=== PATIENT | female | born 1985 | race Caucasian/White ===

== ENCOUNTER 2023-01-25 14:23 | Emergency (ER) | payer SELFPAY ==
[2023-01-25] MEDS ORDERED: Ondansetron 4 MG/2 ML SDV IVPUSH ONE (15:37)
[2023-01-25] MEDS ORDERED: Sodium Chloride 0.9% 1,000 ML IV SCH (15:45)
[2023-01-25] MEDS ORDERED: HYDROmorphone 0.5 MG/0.5 ML Syringe IVPUSH ONE (15:52)
[2023-01-25 16:41] LABS: BASOPHILS ABSOLUTE AUTO 0.05 K/mm3 (0.01-0.08); BASOPHILS PERCENT AUTO 0.4 % (0.1-1.2); EOSINOPHILS ABSOLUTE AUTO 0.02 K/mm3 (0.04-0.36); EOSINOPHILS PERCENT AUTO 0.2 (0.7-5.8); HEMOGLOBIN 14.9 gm/dl (11.2-15.7); IMMATURE GRAN ABSOLUTE AUTO 0.08 K/mm3 (0.00-0.10); IMMATURE GRAN PERCENT AUTO 0.6 % (<=1.0); LYMPHOCYTES ABSOLUTE AUTO 1.27 K/mm3 (1.18-3.74); MEAN CORPUSCULAR HEMOGLOBIN 32.8 pg (25.6-32.2); MEAN CORPUSCULAR HGB CONC 33.1 g/dl (32.2-35.5); MEAN CORPUSCULAR VOLUME 99.1 fl (79.4-94.8); MEAN PLATELET VOLUME 10.3 fl (9.4-12.3); MONOCYTES ABSOLUTE AUTO 0.84 K/mm3 (0.24-0.36); MONOCYTES PERCENT AUTO 6.6 % (4.7-12.5); NEUTROPHILS ABSOLUTE AUTO 10.46 K/mm3 (1.56-6.13); NEUTROPHILS PERCENT AUTO 82.2 % (34.0-71.1); PLATELET COUNT,PLT 338 K/mm3 (182-369); RED BLOOD CELL COUNT 4.54 M/mm3 (3.98-5.22); WHITE BLOOD CELL COUNT,WBC 12.72 K/mm3 (3.98-10.04)
[2023-01-25 16:53] LABS: APPEARANCE,URINE TURBID (Clear); BILIRUBIN,URINE NEGATIVE (Negative); COLOR,URINE RED (Yellow); GLUCOSE,URINE NEGATIVE (Negative); KETONES,URINE TRACE (Negative); LEUKOCYTE ESTERASE,URINE NEGATIVE (Negative); NITRITE,URINE NEGATIVE (Negative); PH,URINE 6.5 (5.0-8.0); PROTEIN,URINE 3+ (Negative); UROBILINOGEN,URINE 0.2 (0.2-1.0)
[2023-01-25 16:55] LABS: OCCULT BLOOD,URINE 3+ (Negative)
[2023-01-25 17:02] LABS: A/G RATIO 1.1 (1-2); ALANINE AMINOTRANSFERASE,ALT 154 U/L (14-59); ALBUMIN 4.2 g/dl (3.4-5.0); ALKALINE PHOSPHATASE 88 U/L (46-116); ANION GAP 15.8 (5-15); ASPARTATE AMNIOTRANSFERASE,AST 150 U/L (15-37); BILIRUBIN TOTAL 0.3 mg/dL (0.2-1.0); BLOOD UREA NITROGEN,BUN 9 mg/dL (7-18); CALCIUM 9.7 mg/dL (8.5-10.1); CARBON DIOXIDE,CO2 26 mEq/L (21-32); CHLORIDE,CL 103 mEq/L (98-107); CREATININE 0.6 mg/dL (0.55-1.02); ESTIMATED GFR 119 mL/min (>60); GLUCOSE RANDOM 88 mg/dL (70-99); POTASSIUM,K 3.8 mEq/L (3.5-5.1); SODIUM,NA 141 mEq/L (136-145)
[2023-01-25 17:10] LABS: BACTERIA,URINE FEW /hpf (FEW); MUCUS,URINE FEW /hpf (FEW); RBC,URINE TOO NUMEROUS TO CNT /hpf (0-5); SQUAMOUS EPITHELIAL CELLS,UR 0-5 /hpf (0-5); WBC,URINE 0-5 /hpf (0-5)
[2023-01-25] MEDS ORDERED: Tamsulosin 0.4 MG Cap.ER PO ONE (17:30)
== END 2023-01-25 17:50 | disposition home or self-care (01) ==
LOC: JD.ED 14:23
DX: N13.2 Hydronephrosis with renal and ureteral calculous obstruction (principal); F17.210 Nicotine dependence, cigarettes, uncomplicated; Z87.440 Personal history of urinary (tract) infections; Z88.5 Allergy status to narcotic agent
CPT/HCPCS: 36415; 74176; 80053; 81001; 81025; 85025; 96361; 96374; 96375; 99284; A9270; J1170; J2405; J7030

== ENCOUNTER 2024-02-05 19:59 | Emergency (ER) | payer OTHER ==
[2024-02-05 20:24] LABS: BASOPHILS ABSOLUTE AUTO 0.2 K/mm3 (0.0-0.2); BASOPHILS PERCENT AUTO 0.9 % (0.0-1.0); EOSINOPHILS ABSOLUTE AUTO 0.1 K/mm3 (0.0-0.4); EOSINOPHILS PERCENT AUTO 0.4 % (0.0-6.0); HEMATOCRIT 39.8 % (37.0-47.0); HEMOGLOBIN 13.6 gm/dl (12.0-16.0); IMMATURE GRAN ABSOLUTE AUTO 0.45 K/mm3 (0.00-0.05); IMMATURE GRAN PERCENT AUTO 2.7 % (0.0-0.4); MEAN CORPUSCULAR HEMOGLOBIN 33.8 pg (28.0-32.0); MEAN CORPUSCULAR HGB CONC 34.2 g/dl (32.0-36.0); MEAN PLATELET VOLUME 10.1 fl (9.4-12.3); MONOCYTES ABSOLUTE AUTO 1.2 K/mm3 (0.0-0.8); MONOCYTES PERCENT AUTO 7.3 % (0.0-8.0); NEUTROPHILS ABSOLUTE AUTO 9.8 K/mm3 (1.8-7.7); NEUTROPHILS PERCENT AUTO 58.7 % (41.0-71.0); PLATELET COUNT,PLT 322 K/mm3 (150-400); RED BLOOD CELL COUNT 4.02 M/mm3 (4.10-5.30); WHITE BLOOD CELL COUNT,WBC 16.75 K/mm3 (3.9-11.3)
[2024-02-05] MEDS ORDERED: Sodium Chloride 0.9% 100 ML IV SCH (20:30)
[2024-02-05 20:42] LABS: INR 0.99; PROTHROMBIN TIME 10.6 SECONDS (9.7-12.0)
[2024-02-05] MEDS: Sodium Chloride 0.9% 1,000 ML ONE (20:53)
[2024-02-05 20:56] LABS: A/G RATIO 1.1 (1-2); ALANINE AMINOTRANSFERASE,ALT 222 U/L (14-59); ALBUMIN 3.7 g/dl (3.4-5.0); ALKALINE PHOSPHATASE 85 U/L (46-116); ANION GAP 18.4 (5-15); BILIRUBIN TOTAL 0.7 mg/dL (0.2-1.0); BLOOD UREA NITROGEN,BUN 7 mg/dL (7-18); CALCIUM 8.9 mg/dL (8.5-10.1); CARBON DIOXIDE,CO2 22 mEq/L (21-32); CHLORIDE,CL 100 mEq/L (98-107); CREATININE 0.7 mg/dL (0.55-1.02); ESTIMATED GFR 114 mL/min (>60); ETHANOL BLOOD MEDICAL 0.17 gm% (0.00); GLUCOSE RANDOM 128 mg/dL (70-99); POTASSIUM,K 3.4 mEq/L (3.5-5.1); PROTEIN TOTAL,TP 7.1 g/dl (6.4-8.2); SODIUM,NA 137 mEq/L (136-145)
[2024-02-05] MEDS: Iopamidol 612 MG/ML 100 ML Bottle IVPUSH ONE (21:34)
[2024-02-05] MEDS: Lidocaine 1% 10 ML MDV INJECT ONE (21:49)
[2024-02-05] MEDS ORDERED: Lidocaine 1% 10 ML MDV ONE (22:06)
[2024-02-05] MEDS: ceFAZolin 1 GM Vial IM ONE (22:23)
[2024-02-05] MEDS: Dexamethasone 4 MG/ML SDV IVPUSH ONE (22:23)
[2024-02-05] MEDS: Diphtheria,Pertussis(Acell),Tetanus Vaccine 0.5 ML Syringe IM ONE (22:23)
[2024-02-05 22:42] LABS: ASPARTATE AMNIOTRANSFERASE,AST 552 U/L (15-37)
[2024-02-05 22:43] LABS: AMPHETAMINES SCREEN, URINE PRESUMPTIVE POSITIVE (CUTOFF=500); BARBITURATE SCREEN,URINE NEGATIVE (CUTOFF=200); BENZODIAZEPINES SCREEN,URINE NEGATIVE (CUTOFF=150); BUPRENORPHINE SCREEN,URINE NEGATIVE (CUTOFF=10); METHADONE SCREEN, URINE NEGATIVE (CUTOFF=200); METHAMPHETAMINES SCREEN, URINE NEGATIVE (CUTOFF=500); OXYCODONE SCREEN,URINE NEGATIVE (CUT0FF=100); THC SCREEN,URINE 20 NG/ML NEGATIVE (CUTOFF=50)
== END 2024-02-06 00:18 ==
LOC: JD.ED 19:59
DX: S06.300A Unspecified focal traumatic brain injury without loss of consciousness, initial encounter (principal); Z88.5 Allergy status to narcotic agent; Z79.899 Other long term (current) drug therapy; V29.508A Other motorcycle passenger injured in collision with unspecified motor vehicles in traffic accident, initial encounter; Z23 Encounter for immunization
CPT/HCPCS: 32551; 36415; 70450; 70486; 71045; 71260; 72125; 72128; 72131; 72170; 74177; 80053; 80306; 80307; 84703; 85025; 85610; 85730; 86850; 86900; 86901; 90471; 90715; 96372; 96374; 99285; C1729; J0690; J1100; J7030; Q9967; 99291; J3490

== ENCOUNTER 2024-09-05 09:34 | Emergency (ER) | payer MEDICAID ==
[2024-09-05] MEDS: methylPREDNISolone Sodium Succinate 125 MG/2 ML SDV IVPUSH ONE (10:45)
[2024-09-05] MEDS: Linezolid 600 MG/300 ML 600 MG in Premix Bag 1 BAG IV ONE (10:45)
== END 2024-09-05 11:56 | disposition home or self-care (01) ==
LOC: JD.ED 09:34
DX: L53.9 Erythematous condition, unspecified (principal); T36.8X5A Adverse effect of other systemic antibiotics, initial encounter; Z88.5 Allergy status to narcotic agent; Z88.0 Allergy status to penicillin; Z88.2 Allergy status to sulfonamides; Z88.1 Allergy status to other antibiotic agents
CPT/HCPCS: 96365; 96375; 99283; J2020; J2919; 93010; 99284

== ENCOUNTER 2024-09-06 12:17 | Emergency (ER) | payer MEDICAID ==
[2024-09-06] MEDS ORDERED: LORazepam 2 MG/ML SDV IVPUSH PRN (12:52)
[2024-09-06] MEDS: Famotidine 20 MG/2 ML SDV IVPUSH ONE (13:47)
[2024-09-06] MEDS: methylPREDNISolone Sodium Succinate 125 MG/2 ML SDV IVPUSH ONE (13:47)
[2024-09-06] MEDS: Ondansetron 4 MG/2 ML SDV IVPUSH ONE (13:47)
[2024-09-06] MEDS: Sodium Chloride 0.9% 1,500 ML IV ONE (13:47)
[2024-09-06] MEDS: Acetaminophen 325 MG Tab PO ONE (14:20)
== END 2024-09-06 15:47 | disposition home or self-care (01) ==
LOC: JD.ED 12:17
DX: R21 Rash and other nonspecific skin eruption (principal); T36.8X5A Adverse effect of other systemic antibiotics, initial encounter; Z88.0 Allergy status to penicillin; Z88.1 Allergy status to other antibiotic agents; Z88.2 Allergy status to sulfonamides; Z88.5 Allergy status to narcotic agent; Z79.52 Long term (current) use of systemic steroids; Z79.899 Other long term (current) drug therapy
CPT/HCPCS: 96361; 96374; 96375; 99283; A9270; J2405; J2919; J7030

== ENCOUNTER 2024-09-06 21:38 | Emergency (ER) | payer MEDICAID ==
[2024-09-06] MEDS ORDERED: Sodium Chloride 0.9% 10 ML Syringe FLUSH PRN (22:13)
[2024-09-06 22:44] LABS: BASOPHILS ABSOLUTE AUTO 0.1 K/mm3 (0.0-0.2); BASOPHILS PERCENT AUTO 0.3 % (0.0-1.0); EOSINOPHILS ABSOLUTE AUTO 0.6 K/mm3 (0.0-0.4); HEMATOCRIT 39.9 % (37.0-47.0); IMMATURE GRAN ABSOLUTE AUTO 0.17 K/mm3 (0.00-0.05); IMMATURE GRAN PERCENT AUTO 0.9 % (0.0-0.4); LYMPHOCYTES ABSOLUTE AUTO 1.4 K/mm3 (1.0-4.8); LYMPHOCYTES PERCENT AUTO 7.8 % (24.0-44.0); MEAN CORPUSCULAR HEMOGLOBIN 28.1 pg (28.0-32.0); MEAN CORPUSCULAR HGB CONC 32.6 g/dl (32.0-36.0); MEAN CORPUSCULAR VOLUME 86.2 fl (83.0-99.0); MEAN PLATELET VOLUME 10.2 fl (9.4-12.3); MONOCYTES ABSOLUTE AUTO 0.8 K/mm3 (0.0-0.8); NEUTROPHILS ABSOLUTE AUTO 15.6 K/mm3 (1.8-7.7); PLATELET COUNT,PLT 205 K/mm3 (150-400); RED BLOOD CELL COUNT 4.63 M/mm3 (4.10-5.30); WHITE BLOOD CELL COUNT,WBC 18.54 K/mm3 (3.9-11.3)
[2024-09-06 23:04] LABS: A/G RATIO 0.8 (1-2); ANION GAP 18.1 (5-15); BILIRUBIN TOTAL 0.2 mg/dL (0.2-1.0); CALCIUM 8.4 mg/dL (8.5-10.1); EST CRCL DRUG DOSING (CG) 72.11 mL/min; POTASSIUM,K 4.1 mEq/L (3.5-5.1); PROTEIN TOTAL,TP 6.6 g/dl (6.4-8.2)
[2024-09-06 23:07] LABS: LACTIC ACID 3.1 mmol/L (0.4-2.0)
[2024-09-06] MEDS: Dextrose 5%-0.45% NaCl 1,000 ML IV SCH (23:10)
[2024-09-06] MEDS: Sodium Chloride 0.9% 1,000 ML IV ONE ×2 (23:12→23:47)
[2024-09-07] MEDS: Sodium Chloride 0.9% 1,000 ML IV ONE (00:49)
[2024-09-07] MEDS: Acetaminophen 325 MG Tab PO ONE (01:58)
== END 2024-09-07 02:38 ==
LOC: JD.ED 21:38
DX: L51.3 Stevens-Johnson syndrome-toxic epidermal necrolysis overlap syndrome (principal); Z79.899 Other long term (current) drug therapy; Z88.0 Allergy status to penicillin; Z88.2 Allergy status to sulfonamides; Z88.1 Allergy status to other antibiotic agents; Z88.5 Allergy status to narcotic agent
CPT/HCPCS: 36415; 80053; 83605; 85025; 87040; 96360; 96361; 99284; A9270; J7030; J7799